=== PATIENT | male | born 1990 | race Caucasian/White ===

== ENCOUNTER 2017-11-11 17:58 | Emergency (ER) | payer OTHER ==
[~2017-11-11] VITALS: Ht 170.2 cm; Wt 81.6 kg
[2017-11-11] MEDS ORDERED: ADVIL200 MG (18:23)
[2017-11-11] MEDS ORDERED: KETO10TA2 PO (18:29)
== END 2017-11-11 18:43 | disposition home or self-care (01) ==
LOC: ER 17:58
DX: S30.1XXA Contusion of abdominal wall, initial encounter (principal); W22.8XXA Striking against or struck by other objects, initial encounter; Y93.89 Activity, other specified; Y92.89 Other specified places as the place of occurrence of the external cause; Y99.8 Other external cause status

== ENCOUNTER 2017-11-23 18:36 | Emergency (ER) | payer OTHER ==
[~2017-11-23] VITALS: Ht 177.8 cm; Wt 83.9 kg
[~2017-11-23 18:36] MED LIST: ADVIL200 MG; KETO10TA2 PO
== END 2017-11-23 22:42 | disposition home or self-care (01) ==
LOC: ER 18:36
DX: N50.811 Right testicular pain (principal)

== ENCOUNTER 2018-04-28 20:18 | Emergency (ER) | payer OTHER ==
[~2018-04-28] VITALS: Ht 177.8 cm; Wt 89.8 kg
== END 2018-04-28 22:52 | disposition home or self-care (01) ==
LOC: ER 20:18
DX: S93.492A Sprain of other ligament of left ankle, initial encounter (principal); X58.XXXA Exposure to other specified factors, initial encounter; Y93.89 Activity, other specified; Y92.89 Other specified places as the place of occurrence of the external cause; Y99.8 Other external cause status

== ENCOUNTER 2022-09-13 13:53 | Emergency (ER) | payer OTHER ==
[~2022-09-13] VITALS: Ht 177.8 cm; Wt 95.3 kg
== END 2022-09-13 19:17 | disposition home or self-care (01) ==
LOC: ER 13:53
DX: N45.1 Epididymitis (principal); N43.3 Hydrocele, unspecified; Z88.8 Allergy status to other drugs, medicaments and biological substances

== ENCOUNTER 2024-03-24 08:23 | Emergency (ER) | payer OTHER ==
[~2024-03-24] VITALS: Ht 177.8 cm; Wt 98.0 kg
[2024-03-24] MEDS ORDERED: KETO10TA2 PO (09:12)
[2024-03-24] MEDS ORDERED: NORFLEX100MG PO (09:12)
[2024-03-24] MEDS ORDERED: KETOROLAC TROMETHAMINE 60 MG VIAL IM ONE (09:15)
[2024-03-24] MEDS ORDERED: ORPHENADRINE CITRATE 30 MG/ML AMPUL IM ONE (09:15)
== END 2024-03-24 09:24 | disposition home or self-care (01) ==
LOC: ER 08:25
DX: M62.830 Muscle spasm of back (principal); Z88.8 Allergy status to other drugs, medicaments and biological substances